=== PATIENT | male | born 1955 | race Caucasian/White ===

== ENCOUNTER → 2017-05-23 | Outpatient (CLI) | payer OTHER ==
[~2017-05-23] MED LIST: ALLERGY25 MG PO; CENTRUM SILVER PO; FLOMAX0.4 M1 PO; SLO-NIACIN250 MG PO; STOOL SOFTENER50 MG PO; ZANTAC150 M1 PO
--- NOTE | ~2017-05-23 | CT57 ---
[facility] A Service of [facility] & [facility] RADIOLOGY TEXT RESULTS PATIENT: ROSETTE VILLALTA LOCATION: [facility] : 53 UNIT #: [id number] AGE: [address]: Dwayne Herrmann MD SEX: M ORDER DR: [id number] [address] [address] [id number] MR#: [id number] Acc #: [id number] NAME: ROSETTE VILLALTA : 1955 SEX: M STUDY DATE/TIME: 05/23/2017 13:19 UNIT: [facility] ROOM: STUDY DESCRIPTION: CT Chest Wo Cont Attending Physician: Dwayne Herrmann M.D. Referring Physician: Dwayne Herrmann M.D. Ordering Physician: Dwayne Herrmann M.D. Primary Care Physician: Dwayne Herrmann M.D. MEDICAL IMAGING REPORT This report is preliminary unless electronic signature is present. EXAM CT chest without contrast DATE 05/23/2017 HISTORY 61-year-old male for followup of ascending thoracic aortic aneurysm. Occasional shortness of breath; otherwise no current complaints. COMPARISON CT chest without contrast 05/14/2016. PROCEDURE 5 mm axial images through the chest without contrast. Sagittal and coronal reformatted images were obtained. This CT exam was performed with one or more of the following radiation dose reduction techniques: automatic exposure control, adjustment of mA and/or kV according to patient size, and iterative reconstruction. FINDINGS There is aneurysmal dilation of the aortic root at the sinuses of Valsalva measuring 4.3 cm compared to 4.5 cm on previous examination. There is fusiform aneurysmal dilation of the mid ascending thoracic aorta measuring approximately 4.1 cm which is unchanged from the prior exam. The mid transverse aorta measures 3.0 cm, not significantly changed from prior study where measured 3.1 cm. The mid descending thoracic aorta is borderline aneurysmal at 3.0 cm, measuring about to 2.9 cm on the previous study. The aorta at the level of the diaphragmatic hiatus is of normal caliber measuring 2.6 meters. Continuing juxtarenal abdominal aorta is of normal caliber. STS. [facility] A Service of [facility] & [facility] RADIOLOGY TEXT RESULTS PATIENT: ROSETTE VILLALTA LOCATION: [facility] : 53 UNIT #: [id number] AGE: [address]: Dwayne Herrmann MD SEX: M ORDER DR: Mild coronary artery calcifications are present. Heart size is within normal limits. Benign calcified granulomatous changes are present within mediastinum, right hilum and right upper lobe. Peripheral interstitial thickening and intervening peripheral ground-glass densities are present within the bilateral upper lobes, very similar to the 05/14/2016 examination, thought to represent changes of chronic fibrosis. No acute airspace disease is identified. Mild emphysematous changes are present. Multiple right adrenal nodules with peripheral calcifications are redemonstrated, the largest nodules measuring about 2.0 cm and 2.4 cm, respectively. These may represent sequelae of old adrenal hemorrhage or infection. It is thought to represent a benign finding. Tiny low-density lesion in the left hepatic lobe measures 5 mm, nonspecific, is diffusely favored to represent benign finding such as a cyst or angioma. Remainder of included upper abdominal organs have a normal noncontrast appearance. There is a plate and screw fixation within the L2 vertebral body. No acute osseous abnormalities are identified. IMPRESSION 1. Aneurysmal dilation of the aortic root at the sinuses Valsalva measures 4.3 cm compared to 4.5 years on previous study. It is thought to be a stable finding. 2. Approximately stable aneurysmal dilation of the mid ascending thoracic aorta, 4.1 cm. Borderline aneurysmal dilation of the mid descending thoracic aorta, 3.0 cm, unchanged. 3. No acute chest findings. 4. Chronic-appearing fibrotic changes in the periphery the upper lobes with mild emphysema. 5. Calcified granulomatous changes. 6. Peripherally calcified nodules in the right upper quadrant of the abdomen, thought most likely to arise from the adrenal gland. These findings are chronic and unchanged from 2015, and are most in keeping with benign findings. 7. Nonspecific 5 mm low-density lesion in the left hepatic segment technically too small care to characterize, statistically favored to represent a tiny cyst or hemangioma. Dictated by... Marni Shultz M.D. THIS IS AN ELECTRONICALLY VERIFIED REPORT Marni Shultz M.D. at 05/27/2017 10:[address] [facility]/xu TD: 05/26/2017 18:42 JOB #: [id number] [facility]. [facility] A Service of [facility] & [facility] RADIOLOGY TEXT RESULTS PATIENT: ROSETTE VILLALTA LOCATION: [facility] : 53 UNIT #: [id number] AGE: [address]: Dwayne Herrmann MD SEX: M ORDER DR: MEDICAL IMAGING REPORT Page 1 of 1
== END | disposition home or self-care (01) ==
LOC: SCT 13:07
DX: I71.2 Thoracic aortic aneurysm, without rupture (principal); R91.8 Other nonspecific abnormal finding of lung field; K76.9 Liver disease, unspecified
CPT/HCPCS: 71250